=== PATIENT | male | born 1985 | race Hispanic/Latino ===

== ENCOUNTER 2022-06-08 11:38 | Emergency (ER) | payer BC ==
[~2022-06-08] VITALS: Ht 165.1 cm; Wt 76.3 kg
[2022-06-08] VITALS (7 sets, daily range): BP systolic 99–137; BP diastolic 58–81
[2022-06-08] MEDS ORDERED: PREDNISONE20 MG PO (15:42)
[2022-06-08] MEDS ORDERED: NAPROXEN500 MG PO (15:42)
[2022-06-08] MEDS ORDERED: METHOCARBAMOL500 MG PO (15:42)
== END 2022-06-08 16:15 | disposition home or self-care (01) | DRG 74 ==
LOC: ED 11:38
DX: M54.12 Radiculopathy, cervical region (principal)